=== PATIENT | female | born 1965 | race African-American/Black ===

== ENCOUNTER 2016-05-13 17:05 | Emergency (ER) | payer BC ==
--- NOTE | 2016-05-13 17:35 | ER Document Report ---
ED Medical Screen (RME) - General Chief Complaint: Urinary Frequency Stated Complaint: FLANK PAIN Time seen by provider: 17:32 Mode of Arrival: Ambulatory Information source: Patient Notes: 50-year-old female complaining of dysuria frequency and urgency for 2 days. She does have a dull low back pain all the way across. No nausea vomiting or abdominal pain. No vaginal discharge with an odor. Hysterectomy. I have greeted and performed a rapid initial assessment of this patient. A comprehensive ED assessment, evaluation of the patient, analysis of test results , and completion of the medical decision making process will be conducted by additional ED providers. TRAVEL OUTSIDE OF THE [place] IN LAST 30 DAYS: No - Related Data Allergies/Adverse Reactions: codeine [Codeine] Allergy (Verified 12/19/15 09:16) Past Medical History - Past Medical History Cardiac Medical History: Reports: Hx Coronary Artery Disease, Hx Heart Attack - nstemi, Hx Hypercholesterolemia, Hx Hypertension Pulmonary Medical History: Reports: Hx Asthma Endocrine Medical History: Reports: Hx Hypothyroidism GI Medical History: Reports: Hx Irritable Bowel. Denies: Hx Colonoscopy, Hx Endoscopy Musculoskeltal Medical History: Reports Hx Arthritis Skin Medical History: Reports Hx Eczema Psychiatric Medical History: Reports: Hx Anxiety, Hx Depression Past Surgical History: Reports: Hx Cholecystectomy, Hx Hysterectomy, Hx Oral Surgery, Hx Tubal Ligation - Immunizations Immunizations up to date: Yes Physical Exam - Vital signs Vitals: Temp Pulse Resp BP Pulse Ox 98.1 F 96 14 139/76 H 98 05/13/16 17:09 05/13/16 17:09 05/13/16 17:09 05/13/16 17:09 05/13/16 17:09 Course - Vital Signs Vital signs: Temp Pulse Resp BP Pulse Ox 98.1 F 96 14 139/76 H 98 05/13/16 17:09 05/13/16 17:09 05/13/16 17:09 05/13/16 17:09 05/13/16 17:09
[2016-05-13 17:55] LABS: APPEARANCE,URINE CLEAR; BILIRUBIN,URINE NEGATIVE (NEGATIVE); GLUCOSE, URINE NEGATIVE (NEGATIVE); KETONES,URINE NEGATIVE (NEGATIVE); LEUKOCYTE ESTERASE,URINE NEGATIVE (NEGATIVE); NITRITE,URINE NEGATIVE (NEGATIVE); PROTEIN,URINE NEGATIVE (NEGATIVE); URINE SPECIFIC GRAVITY 1.004; UROBILINOGEN,URINE NEGATIVE mg/dL (<2.0)
--- NOTE | 2016-05-13 19:28 | ER Document Report ---
ED General - General Chief Complaint: Urinary Problem Stated Complaint: FLANK PAIN Time seen by provider: 19:00 Mode of Arrival: Ambulatory Information source: Patient Notes: 50-year-old female with 2 day history of bilateral low back pain that is relieved with urination along with urinary urgency and frequency. She denies vaginal bleeding or discharge. She reports she's had similar symptoms several times in the past with bladder infections. She denies fever, chills, nausea, vomiting, chest pain, abdominal pain, or hematuria. Physical Exam: General: Alert, appears well. HEENT: Normocephalic. Atraumatic. PERRLA. Extraocular movements intact. Oropharynx clear. Neck: Supple. Non-tender. Respiratory: No respiratory distress. Clear and equal breath sounds bilaterally. Cardiovascular: Regular rate and rhythm. Abdominal: Normal Inspection. Soft, non-tender. No distension. Normal Bowel Sounds. Back: No CVA tenderness No deformity or step off. Extremities: Moves all four extremities. Upper extremities: Normal inspection. Non-tender. Normal color. Normal ROM. Normal temperature. Lower extremities: Normal inspection. Non-tender. No edema. Normal color. Normal ROM. Normal temperature. Neurological: Speech clear mentation normal ambulation without difficulty Psychological: Normal affect. Normal Mood. Skin: Warm. Dry. Normal color. TRAVEL OUTSIDE OF THE [place] IN LAST 30 DAYS: No - Related Data Allergies/Adverse Reactions: codeine [Codeine] Allergy (Verified 12/19/15 09:16) Past Medical History - General Information source: Patient - Social History Smoking Status: Never Smoker Family History: Arthritis, CAD, Hyperlipidemia, Hypertension, Malignancy, Thyroid Disfunction. denies: CVA, DM Patient has suicidal ideation: No Patient has homicidal ideation: No - Past Medical History Cardiac Medical History: Reports: Hx Coronary Artery Disease, Hx Heart Attack - nstemi, Hx Hypercholesterolemia, Hx Hypertension Pulmonary Medical History: Reports: Hx Asthma Endocrine Medical History: Reports: Hx Hypothyroidism Renal/ Medical History: Denies: Hx Peritoneal Dialysis GI Medical History: Reports: Hx Irritable Bowel. Denies: Hx Colonoscopy, Hx Endoscopy Musculoskeltal Medical History: Reports Hx Arthritis Skin Medical History: Reports Hx Eczema Psychiatric Medical History: Reports: Hx Anxiety, Hx Depression Past Surgical History: Reports: Hx Cholecystectomy, Hx Hysterectomy, Hx Oral Surgery, Hx Tubal Ligation - Immunizations Immunizations up to date: Yes Review of Systems - Review of Systems Constitutional: denies: Chills, Fever EENT: denies: Ear pain, Throat pain Cardiovascular: denies: Chest pain Respiratory: denies: Cough, Short of breath Gastrointestinal: denies: Abdominal pain, Diarrhea, Nausea, Vomiting Genitourinary: denies: Dysuria Female Genitourinary: Post menopausal. denies: Vaginal discharge, Vaginal bleeding Musculoskeletal: Back pain Skin: denies: Rash Hematologic/Lymphatic: denies: Swollen glands Neurological/Psychological: denies: Weakness, Numbness Physical Exam - Vital signs Vitals: Temp Pulse Resp BP Pulse Ox 98.1 F 96 14 139/76 H 98 05/13/16 17:09 05/13/16 17:09 05/13/16 17:09 05/13/16 17:09 05/13/16 17:09 Course - Re-evaluation Re-evalutation: 05/13/16 19:26 Laboratory evidence is equivocal for UTI but given patient's symptoms I believe she does have urinary tract infection will be treated with antibiotics and Pyridium. She reports her physician recently left [facility] and will provide her with outpatient referral - Vital Signs Vital signs: Temp Pulse Resp BP Pulse Ox 98.1 F 96 14 139/76 H 98 05/13/16 17:09 05/13/16 17:09 05/13/16 17:09 05/13/16 17:09 05/13/16 17:09 - Laboratory Laboratory results interpreted by me: 05/13/16 17:40 Urine Blood SMALL H Discharge - Discharge Clinical Impression: UTI (urinary tract infection) Qualifiers: Urinary tract infection type: site unspecified Hematuria presence: without hematuria Qualified Code(s): N39.0 - Urinary tract infection, site not specified Condition: Stable Disposition: HOME, SELF-CARE Instructions: Urinary Tract Infection ([facility]) Prescriptions: Phenazopyridine HCl [Pyridium 100 Mg Tablet] 100 mg PO TID #10 tablet Sulfamethoxazole/Trimethoprim [Bactrim Ds Tablet] 1 each PO BID #20 tablet Referrals: NO WEAVER MD [COMMUNITY BASED STAFF] - Follow up as needed
[2016-05-13 19:59] VITALS: BP 141/83
== END 2016-05-13 19:45 | disposition home or self-care (01) ==
LOC: ER 17:05
DX: N39.0 Urinary tract infection, site not specified (principal); M54.5 Low back pain; R35.0 Frequency of micturition; R39.15 Urgency of urination; I25.10 Atherosclerotic heart disease of native coronary artery without angina pectoris; I25.2 Old myocardial infarction; I10 Essential (primary) hypertension; J45.909 Unspecified asthma, uncomplicated; Z88.5 Allergy status to narcotic agent
CPT/HCPCS: 81001; 87086; 99283

== ENCOUNTER → 2016-08-01 | Outpatient (CLI) | payer BC ==
--- NOTE | 2016-08-01 17:28 | WOMENS IMAGING REPORT ---
EXAM DESCRIPTION: BILAT SCREENING MAMMO W/CAD COMPLETED DATE/TIME: 08/01/2016 3:37 pm REASON FOR STUDY: ROUTINE SCREENING MAMMO, Z12.31 Z12.39 ENCOUNTER FOR [facility] SCREENING FOR MALIGNANT NEOPLASM OF COMPARISON: None. TECHNIQUE: Standard craniocaudal and mediolateral oblique views of each breast recorded using [employer]and[employer] l acquisition. LIMITATIONS: None. FINDINGS: RIGHT BREAST MASSES: A low-density well circumscribed nodule is present in the lateral right breast about the 9 o' clock position. This measures 12 to 14 mm in size. This may represent a breast parenchymal cyst an d ultrasound of the right breast is recommended for followup. CALCIFICATIONS: No new or suspicious calcifications. ARCHITECTURAL DISTORTION: None. DEVELOPING DENSITY: None. ASYMMETRY: None noted. OTHER: No other significant findings. LEFT BREAST MASSES: No suspicious masses. CALCIFICATIONS: No new or suspicious calcifications. ARCHITECTURAL DISTORTION: None. DEVELOPING DENSITY: None. ASYMMETRY: None noted. OTHER: No other significant findings. Read with the assistance of CAD. .[facility] - R2 [employer] Version 1.3 .[facility] - R2 Cenova Version 1.3 .[facility] - R2 Cenova Version 2.4 .[facility] - R2 Cenova Version 2.4 .[facility] - R2 [employer] Version 9.2 IMPRESSION: Low-density well-circumscribed nodule in the lateral right breast, likely a breast paren chymal cyst. Ultrasound recommended for followup. No mammographic evidence for malignancy left breast BREAST DENSITY: a. The breasts are almost entirely fatty. BIRAD: 0 Incomplete: Needs Additional Imaging Evaluation and/or prior Mammograms for Comparison. RECOMMENDATION: RECOMMENDED FOLLOW-UP: Right breast diagnostic ultrasound The patient will be contacted for additional imaging. COMMENT: The patient has been notified of the results by letter per [place] requirements. Additional no tification policies are in place for contacting patient with suspicious or incomplete findings. Quality ID #[id number]: The [employer] recommends an annual screening mammogram for women aged 40 years or over. This facility utilizes a reminder system to ensure that all patients receive reminder letters, and/or direct phone calls for appointments. This includes reminders for routine scr eening mammograms, diagnostic mammograms, or other Breast Imaging Interventions when appropriate. Th is patient will be placed in the appropriate reminder system. The [employer] (ACR) has developed recommendations for screening MRI of the breast s in certain patient populations, to be used in conjunction with mammography. Breast MRI surveillanc e may be appropriate for women with more than 20% lifetime risk of developing breast cancer as deter mined by genetic testing, significant family history of the disease, or history of mantle radiation f or Hodgkins Disease. ACR Practice Guidelines 2008. TECHNICAL DOCUMENTATION: FINDING NUMBER: (1) ASSESSMENT: (1) JOB ID: [id number] [employer]- All Rights Reserved
== END ==
LOC: WI 07:14
PROVIDERS: ATTEND Family Medicine
DX: Z12.31 Encounter for screening mammogram for malignant neoplasm of breast (principal)
CPT/HCPCS: 77067; G0202

== ENCOUNTER → 2016-08-14 | Outpatient (CLI) | payer BC ==
--- NOTE | 2016-08-14 09:43 | WOMENS IMAGING REPORT ---
EXAM DESCRIPTION: U/S BREAST UNILAT LIMITED COMPLETED DATE/TIME: 08/14/2016 7:53 am REASON FOR STUDY: N63,BREAST LUMP N63 UNSPECIFIED LUMP IN BREAST COMPARISON: Mammogram 08/01/2016 TECHNIQUE: Real-time and static grayscale imaging performed of the right breast targeted to the area of clinical/mammographic concern. Selected color Doppler images recorded. LIMITATIONS: None. FINDINGS: MASS: No mass identified. Normal glandular tissue. OTHER: No other significant finding. IMPRESSION: No suspicious findings detected by ultrasound. Probable dense tissue. BIRAD: 3 Probably benign finding. Initial short-interval follow-up suggested. RECOMMENDATION: RECOMMENDED FOLLOW-UP: Short-term six-month follow-up mammogram of the right breast. COMMENT: The [employer] (ACR) has developed recommendations for screening MRI of the breasts in certain patient populations, to be used in conjunction with mammography. Breast MRI s urveillance may be appropriate for women with more than 20% lifetime risk of developing breast cancer as determined by genetic testing, significant family history of the disease, or history of mantle r adiation for Hodgkins Disease. ACR Practice Guidelines 2008. TECHNICAL DOCUMENTATION: JOB ID: [id number] [employer]- All Rights Reserved
== END ==
LOC: WI 06:58
PROVIDERS: ATTEND Family Medicine
DX: N63 Unspecified lump in breast (principal)
CPT/HCPCS: 76642

== ENCOUNTER 2017-03-10 12:11 | Emergency (ER) | payer SELFPAY ==
[2017-03-10 12:22] VITALS: BP 140/86
--- NOTE | 2017-03-10 13:14 | ER Document Report ---
ED Medical Screen (RME) - General Chief Complaint: Shortness Of Breath Stated Complaint: SHORTNESS OF BREATH Time Seen by Provider: 03/10/17 13:06 Notes: This 51-year-old female patient comes emerged from complaining of a two-week history of shortness of breath which she notes when she is walking from her car into the office. It occurs perhaps every other day. She now reports she was fine for 2 days and it has appeared again where she has dyspnea on exertion and is worse. She is on thyroid medication and has had the levels adjusted multiple times, last time to 3 months ago and she is concerned about it being her thyroid levels. She has been documented in the past to have considerable anxiety about her health. Her history documents a non-STEMI but there is also documented a negative cardiac catheterization. She is middle-aged, overweight, and gives a history of coronary artery disease with multiple risk factors. She will have an initial workup to evaluate for cardiovascular, blood clotting, pulmonary and thyroid hormone abnormalities as etiologies of her symptoms. I have greeted and performed a rapid initial assessment of this patient. A comprehensive ED assessment and evaluation of the patient, analysis of test results and completion of the medical decision making process will be conducted by additional ED providers. TRAVEL OUTSIDE OF THE [place] IN LAST 30 DAYS: No - Related Data Allergies/Adverse Reactions: alprazolam [From Xanax] Allergy (Verified 03/10/17 12:14) codeine [Codeine] Allergy (Verified 03/10/17 12:14) Past Medical History - Social History Chew tobacco use (# tins/day): No Frequency of alcohol use: None Drug Abuse: None - Past Medical History Cardiac Medical History: Reports: Hx Coronary Artery Disease, Hx Heart Attack - nstemi, Hx Hypercholesterolemia, Hx Hypertension Pulmonary Medical History: Reports: Hx Asthma Endocrine Medical History: Reports: Hx Hypothyroidism Renal/ Medical History: Denies: Hx Peritoneal Dialysis GI Medical History: Reports: Hx Irritable Bowel. Denies: Hx Colonoscopy, Hx Endoscopy Musculoskeltal Medical History: Reports Hx Arthritis Skin Medical History: Reports Hx Eczema Psychiatric Medical History: Reports: Hx Anxiety, Hx Depression Past Surgical History: Reports: Hx Cholecystectomy, Hx Hysterectomy, Hx Oral Surgery, Hx Tubal Ligation - Immunizations Immunizations up to date: Yes Physical Exam - Vital signs Vitals: Temp Pulse Resp BP Pulse Ox 98.4 F 104 H 18 140/86 H 94 03/10/17 12:17 03/10/17 12:17 03/10/17 12:17 03/10/17 12:17 03/10/17 12:17 Course - Vital Signs Vital signs: Temp Pulse Resp BP Pulse Ox 98.4 F 104 H 18 140/86 H 94 03/10/17 12:17 03/10/17 12:17 03/10/17 12:17 03/10/17 12:17 03/10/17 12:17
[2017-03-10 14:07] LABS: ABSOLUTE BASOPHILS # (AUTO) 0.1 10^3/uL (0.0-0.2); ABSOLUTE EOSINOPHILS # (AUTO) 0.1 10^3/uL (0.0-0.6); ABSOLUTE LYMPHOCYTES (AUTO) 2.7 10^3/uL (0.5-4.7); ABSOLUTE MONOCYTES (AUTO) 0.5 10^3/uL (0.1-1.4); ABSOLUTE NEUT (AUTO) 6.6 10^3/uL (1.7-8.2); BASOPHILS % (AUTO) 0.5 % (0-2); EOSINOPHILS % (AUTO) 0.9 % (0-6); HEMATOCRIT 44.2 % (36.0-47.0); HEMOGLOBIN 15.6 g/dL (12.0-15.5); LYMPHOCYTES % (AUTO) 26.9 % (13-45); MEAN CORPUSCULAR HEMOGLOBIN 29.4 pg (27.0-33.4); MEAN CORPUSCULAR HGB CONC 35.2 g/dL (32.0-36.0); MEAN CORPUSCULAR VOLUME 83 fl (80-97); MONOCYTES % (AUTO) 4.8 % (3-13); PLATELET COUNT 255 10^3/uL (150-450); RED CELL DISTRIBUTION WIDTH 13.3 % (11.5-14.0); SEGMENTED NEUTROPHILS % (AUTO) 66.9 % (42-78); TOTAL CELLS COUNTED % (AUTO) 100 %; WHITE BLOOD COUNT 9.9 10^3/uL (4.0-10.5)
--- NOTE | 2017-03-10 14:20 | RADIOLOGY REPORT (SQ) ---
EXAM DESCRIPTION: CHEST PA/LAT COMPLETED DATE/TIME: 03/10/2017 2:08 pm REASON FOR STUDY: Dyspnea on exertion COMPARISON: 07/21/2015 EXAM PARAMETERS: NUMBER OF VIEWS: two views TECHNIQUE: Digital Frontal and Lateral radiographic views of the chest acquired. RADIATION DOSE: NA LIMITATIONS: none FINDINGS: LUNGS AND PLEURA: No opacities, masses or pneumothorax. No pleural effusion. MEDIASTINUM AND HILAR STRUCTURES: No masses or contour abnormalities. HEART AND VASCULAR STRUCTURES: Heart normal size. No evidence for failure. BONES: Intact. 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 HARDWARE: None in the chest. OTHER: No other significant finding. IMPRESSION: NO SIGNIFICANT RADIOGRAPHIC FINDING IN THE CHEST. TECHNICAL DOCUMENTATION: JOB ID: [id number] [employer]- All Rights Reserved
[2017-03-10 14:24] LABS: ALANINE AMINOTRANSFERASE 42 U/L (9-52); ALBUMIN 4.5 g/dL (3.5-5.0); ALKALINE PHOSPHATASE 92 U/L (38-126); ANION GAP 8 (5-19); ASPARTATE AMINO TRANSFERASE 29 U/L (14-36); BILIRUBIN,DIRECT 0.2 mg/dL (0.0-0.4); BILIRUBIN,TOTAL 0.9 mg/dL (0.2-1.3); BLOOD UREA NITROGEN 6 mg/dL (7-20); CALCIUM 9.8 mg/dL (8.4-10.2); CARBON DIOXIDE 34 mmol/L (22-30); CHLORIDE 101 mmol/L (98-107); CREATINE KINASE 41 U/L (30-135); GLUCOSE 84 mg/dL (75-110); POTASSIUM 3.9 mmol/L (3.6-5.0); SODIUM 142.6 mmol/L (137-145); TOTAL PROTEIN 7.7 g/dL (6.3-8.2)
[2017-03-10 14:35] LABS: CREATINE KINASE MB < 0.22 ng/mL (<4.55); NT PRO BNP 15 pg/mL (5-900); TROPONIN I < 0.012 ng/mL
[2017-03-10 14:38] LABS: FREE T3 3.29 pg/mL (2.77-5.27); FREE T4 (FREE THYROXINE) 1.38 ng/dL (0.78-2.19)
--- NOTE | 2017-03-10 15:16 | ER Document Report ---
ED Respiratory Problem - General Chief Complaint: Shortness Of Breath Stated Complaint: SHORTNESS OF BREATH Time Seen by Provider: 03/10/17 13:06 Notes: Patient says she has been experiencing shortness of breath for the past couple of weeks. Then she had the last couple of days and she was fine until today she has even worse difficulty breathing and shortness of breath, especially with walking. She has never had this before. Never had any problems with blood clots. Does not have any lung disorder that she knows of. Patient says that some of her symptoms might be related to the fact that she is had a busy holiday time as well as working full-time and could be having some anxiety, a condition that she has been diagnosed with in the past. Patient states she had some problems with dizziness a couple months ago and was treated with meclizine. She also has problem with sinuses. She was also treated for sinus symptoms with prednisone and Augmentin sometime over the past couple months. She has had some morning cough, but not really significant in the afternoons. Has not had any chest pains at all. Does not have any pain or swelling of the legs. Has never had any blood clots. Patient was evaluated for chest symptoms a year and a half ago and for some reason had some elevation of her troponins, and she was sent to [place] where she underwent a cardiac catheterization in July 2015 and that cath was said to be normal. She had a subsequent follow-up with a fashion model who told her she did not have any heart problems. TRAVEL OUTSIDE OF THE [place] IN LAST 30 DAYS: No - Related Data Allergies/Adverse Reactions: alprazolam [From Xanax] Allergy (Verified 03/10/17 12:14) codeine [Codeine] Allergy (Verified 03/10/17 12:14) Past Medical History - Social History Smoking Status: Former Smoker Chew tobacco use (# tins/day): No Frequency of alcohol use: None Drug Abuse: None Occupation: Nurse Family History: Arthritis, CAD, Hyperlipidemia, Hypertension, Malignancy, Thyroid Disfunction Patient has suicidal ideation: No Patient has homicidal ideation: No - Past Medical History Cardiac Medical History: Reports: Hx Hypercholesterolemia, Hx Hypertension Denies: Hx Coronary Artery Disease, Hx Heart Attack Pulmonary Medical History: Reports: Hx Asthma Endocrine Medical History: Reports: Hx Hypothyroidism Renal/ Medical History: Denies: Hx Peritoneal Dialysis GI Medical History: Reports: Hx Irritable Bowel Musculoskeltal Medical History: Reports Hx Arthritis Skin Medical History: Reports Hx Eczema Psychiatric Medical History: Reports: Hx Anxiety, Hx Depression Past Surgical History: Reports: Hx Cholecystectomy, Hx Hysterectomy, Hx Oral Surgery, Hx Tubal Ligation - Immunizations Immunizations up to date: Yes Review of Systems - Review of Systems Notes: REVIEW OF SYSTEMS: CONSTITUTIONAL : Denies fever. EENT: Denies eye, ear, nose or mouth or throat pain or other symptoms. CARDIOVASCULAR: Denies chest pain. RESPIRATORY: See HPI. GASTROINTESTINAL: Denies abdominal pain or nausea, vomiting, or diarrhea. GENITOURINARY: Denies difficulty or painful urinating, urinary frequency, blood in urine. MUSCULOSKELETAL: Denies back or neck pain. Denies joint pain or swelling. SKIN: Denies rash or skin lesions. NEUROLOGICAL: Denies LOC or altered mental status. Denies headache. Denies sensory loss or motor deficits. ALL OTHER SYSTEMS REVIEWED AND NEGATIVE. Physical Exam - Vital signs Vitals: Temp Pulse Resp BP Pulse Ox 98.4 F 104 H 18 140/86 H 94 03/10/17 12:17 03/10/17 12:17 03/10/17 12:17 03/10/17 12:17 03/10/17 12:17 Interpretation: Normal. No: Tachycardic, Hypoxic - Notes Notes: PHYSICAL EXAMINATION: GENERAL: Well-appearing, in no acute distress. Vital signs are all essentially normal. Patient does not appear to be significantly short of breath to my examination. HEAD: Atraumatic, normocephalic. NECK: Normal range of motion, supple. LUNGS: Breath sounds clear and equal bilaterally. HEART: Regular rate and rhythm without murmurs. ABDOMEN: Soft, nontender. No guarding or rebound. No masses. BACK: No tenderness throughout entire back. EXTREMITIES: Normal range of motion without pain. No leg swelling or pain or tenderness. Negative Homans. NEUROLOGICAL: Normal speech, normal gait. Normal sensory, motor, and reflex exams. Awake, alert, and oriented x3. Cranial nerves normal. PSYCH: Normal mood, normal affect. SKIN: Warm, dry, no rashes. Course - Re-evaluation Re-evalutation: 03/10/17 19:06 Patient's lab studies, including d-dimer, chest x-ray, and EKG are all essentially normal. Went over all the patient's lab results with her. Explained that I have done is complete workup as I can think of ordering on someone with her symptoms. Reassured her that I cannot find anything that looks significantly abnormal. - Vital Signs Vital signs: Temp Pulse Resp BP Pulse Ox 98.4 F 104 H 18 140/86 H 94 03/10/17 12:17 03/10/17 12:17 03/10/17 12:17 03/10/17 12:17 03/10/17 12:17 - Laboratory Result Diagrams: 03/10/17 13:40 03/10/17 13:40 Laboratory results interpreted by me: 03/10/17 03/10/17 13:40 13:40 RBC 5.30 H Hgb 15.6 H Carbon Dioxide 34 H BUN 6 L Discharge - Discharge Clinical Impression: Shortness of breath Condition: Stable Disposition: HOME, SELF-CARE Additional Instructions: Dyspnea, Nonspecific You were evaluated for shortness of breath, or dyspnea. Dyspnea has many causes, and some are more serious than others. Sometimes it's impossible to diagnose the cause of dyspnea with the tests that are available on an emergency basis. Based on our evaluation today, you do not need hospitalization now. We found no evidence of pneumonia, collapsed lung, blood clots in the lung, tumors , or heart failure. Causes of non-specific dyspnea can include asthma or bronchospasm, hyperventilation, emotional distress, heart disease, emphysema, fibrosis of the lung, and stiffness of the chest wall. In healthy individuals with a single episode, it's sometimes reasonable to do nothing but wait to see if the problem occurs again. Additional tests used to evaluate dyspnea can include cardiac stress testing, echocardiography, pulmonary function testing, CAT scan of the chest, bronchoscopy or pulmonary biopsy. Return if shortness of breath persists or worsens, or if you develop chest pain, fever, cough, confusion, or fainting. NORMAL EXAM AND WORKUP: At this time, your examination and workup show no significant abnormality. No significant abnormal physical findings were noted. All laboratory, EKG, and imaging (x-ray, CT scans, ultrasound) studies that were ordered show no significant abnormality. Although your examination and all studies that were ordered showed no significant abnormal finding, there are no examinations and no studies that are 100% accurate. There is always the possibility that some abnormality could exist and not be detected with physical examination or within the limits and capabilities of laboratory and other studies. You should return or follow up as you were instructed on your visit today for further evaluation if your symptoms do not resolve. FOLLOW-UP CARE: If you have been referred to a physician for follow-up care, call the physician s office for an appointment as you were instructed or within the next two days. If you experience worsening or a significant change in your symptoms, notify the physician immediately or return to the Emergency Department at any time for re-evaluation. If you are not doing any better in a week or 10 days, follow-up with your primary care provider for further evaluation.
--- NOTE | 2017-03-11 10:29 | EKG REPORT ---
SEVERITY:- BORDERLINE ECG - SINUS RHYTHM BORDERLINE T ABNORMALITIES, ANTERIOR LEADS : Confirmed by: Douglas Edwards 11-Mar-2017 10:28:25
== END 2017-03-10 15:37 | disposition home or self-care (01) ==
LOC: ER 12:11
DX: R06.02 Shortness of breath (principal); E78.00 Pure hypercholesterolemia, unspecified; I10 Essential (primary) hypertension; Z88.6 Allergy status to analgesic agent; Z90.49 Acquired absence of other specified parts of digestive tract; Z90.710 Acquired absence of both cervix and uterus
CPT/HCPCS: 36415; 71046; 80053; 82550; 82553; 83880; 84439; 84481; 84484; 85025; 85379; 93005; 93010; 99285